=== PATIENT | female | born 1985 | race Caucasian/White ===

== ENCOUNTER 2017-12-11 09:04 | Outpatient (CLI) | payer BC ==
--- NOTE | 2017-12-11 12:00 | ULT ---
OB ULTRASOUND: DATE: 12/11/17. HISTORY: Patient with positive . Evaluate anatomy. FINDINGS: There is a single intrauterine gestation in cephalic presentation. Cardiac Doppler demonstrates feta l heart tones with a heart rate of 147 b.p.m. The placenta is located posteriorly and is borde rline low-lying, but this may be attributable to prominent distention of the urinary bladder. There is a normal amount of amniotic fluid with an amniotic fluid index of 12.9 cm. Cervical length measur es 4.01 cm. Measurements: Biparietal diameter 4.43 cm, 19 weeks 3 days Head circumference 17.14 cm, 19 weeks 5 days Abdominal circumference 14.35 cm, 19 weeks 5 days Femur length 3.06 cm, 19 weeks 3 days. The estimated gestational age by ultrasound is 19 weeks and 3 days with an ADIA on 05/04/18. Gestatio nal age by last menstrual period is 18 weeks and 6 days. The estimated weight by ultrasound was 302 gm (11 ounces). This represents 86th percentile for weight. The cerebellum, visualized portions of the spine, 4-chamber heart, bilateral kidneys, stomach, and urinary bladder demonstrate a normal sonographic appearance. Cord insertion is visualized and donohue s a normal appearance. There is a suggestion of a 3-vessel cord. No anomalies are visualized. IMPRESSION: 1. Borderline low-lying placenta, but this is probably related to distention of the urinary bladder. Followup evaluation can be performed. 2. Single intrauterine gestation in cephalic presentation with heart tones documented. Gestat ional age by ultrasound is 19 weeks and 3 days with an estimated date of delivery on 05/04/18. 3. Estimated weight is 302 gm (11 ounces). 4. Amniotic fluid index measures 12.9 cm. POS: [facility]
== END 2017-12-11 09:05 | disposition home or self-care (01) ==
LOC: SCSULT 09:04
PROVIDERS: ATTEND Family Medicine
DX: Z34.82 Encounter for supervision of other normal pregnancy, second trimester (principal); Z3A.19 19 weeks gestation of pregnancy
CPT/HCPCS: 76805

== ENCOUNTER 2018-02-20 13:48 | Outpatient (CLI) | payer BC | END 2018-02-20 13:49 | disposition home or self-care (01) | LOC: BICULT 13:48 | PROVIDERS: ATTEND Family Medicine | DX: O44.43 Low lying placenta NOS or without hemorrhage, third trimester (principal) | CPT/HCPCS: 76805 ==

== ENCOUNTER 2018-05-09 06:59 | Inpatient (IN) | payer BC ==
[2018-05-09 07:37] VITALS: BMI 28.1
[2018-05-09] MEDS ORDERED: Acetaminophen/Codeine 30-300mg Tablet PO PRN ×2 (08:05→11:30)
[2018-05-09] MEDS ORDERED: Ibuprofen 800 MG TAB PO PRN (08:05)
[2018-05-09] MEDS ORDERED: Promethazine HCl 25 MG/ML VIAL IM PRN (08:05)
[2018-05-09] MEDS ORDERED: Lidocaine 1% (PF) 30 ML VIAL SC PRN (08:05)
[2018-05-09] MEDS ORDERED: NS / Oxytocin 40 units/1000ml 1,000 ML IV PRN (08:05)
[2018-05-09] MEDS ORDERED: Ondansetron PF 4 MG/2 ML Vial IVP PRN ×2 (08:05→11:30)
[2018-05-09] MEDS ORDERED: Misoprostol 200 MCG TAB PR PRN (08:05)
[2018-05-09] MEDS ORDERED: HYDROcodone/Acetaminophen 5/325 mg Tablet PO PRN ×2 (08:05→11:30)
[2018-05-09] MEDS ORDERED: Lidocaine 1% (PF) 30 ML VIAL ONE (08:07)
[2018-05-09] MEDS ORDERED: Lactated Ringer's 1,000 ML IV SCH (08:15)
[2018-05-09 08:16] LABS: Hemoglobin 14.4 g/dL (12.0-16.0); Mean Corpuscular HGB CONC 35.2 g/dL (32.0-36.0); Mean Corpuscular Hemoglobin 31.5 pg (27.0-31.0); Mean Corpuscular Volume 89.7 fL (78.0-98.0); Mean Platelet Volume 8.1 fL (7.4-10.4); Platelet Count 185 thou/uL (130-400); RBC Distribution Width 12.4 % (11.5-14.5); Red Blood Cell (RBC) Count 4.58 mill/uL (4.20-5.40)
[2018-05-09] MEDS: NS / Oxytocin 40 units/1000ml 1,000 ML IV SCH ×2 (08:35→09:44)
[2018-05-09 08:55] LABS: HBSAg Index 0.34 S/CO (0-0.99); Hep B Surf Ag Non-Reactive S/CO (NonReactive)
[2018-05-09 09:01] LABS: Syphilis Antibody Nonreactive (Nonreactive); Syphilis Antibody Index 0.04 S/CO (<1.00 Non-Reactive)
[2018-05-09] MEDS ORDERED: NS / Oxytocin 40 units/1000ml 1,000 ML IV SCH (11:30)
[2018-05-09] MEDS ORDERED: Preparation H Ointment 28 GM TUBE PR PRN (11:30)
[2018-05-09] MEDS ORDERED: Benzocaine/Menthol 20-0.5% 60 ML CAN TOP PRN (11:30)
[2018-05-09] MEDS ORDERED: Milk Of Magnesia 30 ML UDCUP PO PRN (11:30)
[2018-05-09] MEDS ORDERED: Lanolin Ointment 7 GM TUBE TOP PRN (11:30)
[2018-05-09] MEDS ORDERED: diphenhydrAMINE 25 MG CAP PO PRN (11:30)
[2018-05-09] MEDS ORDERED: Bisacodyl 10 MG SUPP PR PRN (11:30)
[2018-05-09] MEDS ORDERED: Docusate Calcium (SURFAK) 240 MG CAP PO SCH (12:15)
[2018-05-09] MEDS: Ferrous Sulfate 325 MG TAB PO SCH (17:11)
[2018-05-09] MEDS: Ibuprofen 800 MG TAB PO SCH (17:11)
[2018-05-10] MEDS: Ibuprofen 800 MG TAB PO SCH ×2 (02:02→04:36)
[2018-05-10] MEDS: Docusate Calcium (SURFAK) 240 MG CAP PO SCH ×2 (02:02→09:13)
[2018-05-10 08:26] VITALS: BP 129/82; TEMP 97.9
[2018-05-10] MEDS ORDERED: Prenatal Vitamin 1 TAB PO SCH (09:00)
[2018-05-10] MEDS: Ferrous Sulfate 325 MG TAB PO SCH (09:13)
--- NOTE | 2018-05-31 06:11 | PQF ---
Keli Hoover ANNA P MD [id number] [facility] [id number] CLINICAL DOCUMENTATION CLARIFICATION FORM: POST DISCHARGE DATE: 05/31/2018 ATTN: Dr. Powers Please exercise your independent, professional judgment in responding to the clarification form. Clinical indicators are provided on the bottom of this form for your review Please check appropriate box(s): Conflicting documentation was noted in the Medical Record, please clarify if patient is being treated/monitored for: [ ] First degree perineal laceration with repair [ ] First degree perineal laceration without repair [ ] Normal spontaneous vaginal delivery only [ ] Other diagnosis (please specify) [ ] Unable to determine In addition, please specify: Present on Admission (POA): [ ] Yes [ ] No [ ] Unable to determine For continuity of documentation, please document condition throughout progress notes and discharge summary. Thank You. CLINICAL INDICATORS - SIGNS / SYMPTOMS/ LABS Per delivery note: . Per Obstetric Discharge Summary: First degree perineal laceration. RISK FACTORS Status post vaginal delivery. TREATMENT Per delivery note: . (This form is maintained as a part of the permanent medical record) 2014 [employer]. All Rights Reserved Gladys [email or web address] [phone] MTDD
== END 2018-05-10 11:35 | disposition home or self-care (01) | DRG 807 ==
LOC: L&D/OP 06:59 → L&D 08:06 → 3SW 14:53
PROVIDERS: ADMIT Family Medicine; ATTEND Family Medicine
PROC: 10E0XZZ Delivery of Products of Conception, External Approach (ICD-10-PCS; principal; 2018-05-09)
DX: O70.0 First degree perineal laceration during delivery (principal); Z37.0 Single live birth; Z3A.40 40 weeks gestation of pregnancy
CPT/HCPCS: 85027; 86780; 86850; 86900; 86901; 87340; 99285; J2001